=== PATIENT | female | born 1990 | race Caucasian/White ===

== ENCOUNTER 2021-03-31 16:46 | Emergency (ER) | payer OTHER ==
[~2021-03-31] VITALS: Ht 147.3 cm; Wt 81.6 kg
[2021-03-31 17:21] VITALS: BP 144/94
--- NOTE | 2021-03-31 17:48 | NUR ---
urine in dirty utility pt swabbed for novel
[2021-03-31] MEDS ORDERED: cefTRIAXone 500 MG in LIDOCAINE MPF 1% 1 ML IM ONE (18:00)
[2021-03-31] MEDS ORDERED: DOXY-690 PO (18:07)
[2021-03-31] MEDS ORDERED: PROM118S5 PO (18:07)
[2021-03-31] MEDS ORDERED: NAPR-54 PO (18:07)
[2021-03-31] MEDS ORDERED: cefTRIAXone 500 MG VIAL ONE (18:15)
[2021-03-31] MEDS ORDERED: LIDOCAINE MPF 1% 5 ML ONE (18:16)
[2021-03-31 18:25] VITALS: BP 144/94
--- NOTE | 2021-03-31 18:25 | NUR ---
Patient discharged with v/s stable. Written and verbal after care instructions given and explained. Patient alert, oriented and verbalized understanding of instructions. Ambulatory with steady gait. All questions addressed prior to discharge. ID band removed. Patient advised to follow up with PMD. Rx of doxycycline, naproxen, promethazine (sent) given. Patient educated on indication of medication including possible reaction and side effects. Opportunity to ask questions provided and answered.
== END 2021-03-31 18:25 | disposition home or self-care (01) ==
LOC: MED 16:46
DX: J32.8 Other chronic sinusitis (principal); Z20.822 Contact with and (suspected) exposure to COVID-19; Z20.2 Contact with and (suspected) exposure to infections with a predominantly sexual mode of transmission; Z88.0 Allergy status to penicillin; Z88.1 Allergy status to other antibiotic agents; Z79.899 Other long term (current) drug therapy
CPT/HCPCS: 36415; 81002; 81025; 87491; 96372; 99283; J0696; J2001; U0003